=== PATIENT | male | born 1985 | race Caucasian/White ===

== ENCOUNTER 2019-02-14 18:09 | Emergency (ER) | payer OTHER ==
[~2019-02-14] VITALS: Ht 172.7 cm; Wt 71.0 kg
[2019-02-14 18:25] VITALS: Ht 172.7 cm; Wt 71.0 kg
[2019-02-14] MEDS ORDERED: IBUP-1542 PO (18:54)
--- NOTE | 2019-02-14 19:34 | ERD ---
ER Documentation Chief Complaint Chief Complaint c/o chest pain rad to ar, pt. left AMA from [facility] yesterday HPI Patient is a 33-year-old male with no medical problems who presents with chest pain. The [place] He had bilateral arm numbness and chest pain. He went to [facility] in [place] and was admitted. He then left AGAINST MEDICAL ADVICE today medardo use "a lot is going on in my life". He said that he is under a lot of stress and was recently discharged from [facility]. Upon review of old medical records this is the patient's first visit to the emergency department. He does not currently have a primary doctor. ROS All systems reviewed and are negative except as per history of present illness. Medications Home Meds Active Scripts Ibuprofen* (Motrin*) 600 Mg Tab, 600 MG PO Q6H PRN for PAIN AND OR ELEVATED TEMP, #30 TAB Prov:LUÍS STACY MD 02/14/19 Allergies Allergies: Uncoded Allergies: PENICILLIN (Allergy, Severe, 02/14/19) PMhx/Soc Medical and Surgical Hx: pt denies Medical Hx, pt denies Surgical Hx Hx Alcohol Use: Yes Hx Substance Use: Yes Hx Tobacco Use: Yes Smoking Status: Current some day smoker FmHx Family History: coronary disease Physical Exam Vitals Vital Signs Date Temp Pulse Resp B/P (MAP) Pulse Ox O2 O2 Flow FiO2 Time Delivery Rate 02/14/19 97.8 88 20 128/84 99 18:25 (99) Physical Exam Const: No acute distress Head: Atraumatic Eyes: Normal Conjunctiva ENT: Normal External Ears, Nose and Mouth. Neck: Full range of motion. No meningismus. Resp: Clear to auscultation bilaterally Cardio: Regular rate and rhythm, no murmurs Abd: Soft, non tender, non distended. Normal bowel sounds Skin: No petechiae or rashes Back: No midline or flank tenderness Ext: No cyanosis, or edema Neur: Awake and alert Psych: Anxious but no suicidal or homicidal ideation Procedures/MDM EKG read by me: Rate/Rhythm: Regular rate and rhythm at a rate of 97 Intervals: Normal Impression: No evidence of ischemia or arrhythmia Chest X-ray 1V Interpreted by me: Soft Tissue: No acute abnormalities Bones: No acute abnormalities Mediastinum/Cardiac Silhouette/Lungs: No acute abnormalities Smoking Cessation Therapy: Pt. was lectured for greater than 3 minutes on the health risks of continued smoking and the benefits of cessation. Patient is a 33-year-old male with no medical problems who presents with chest pain. His EKG and chest x-ray were negative. He is young and otherwise healthy and at this point I doubt acute coronary syndrome, pneumonia, pneumothorax, pulmonary embolism, or aortic dissection. I believe his symptoms may be related to the anxiety that he is dealing with currently. The patient can return for any worsening symptoms. The patient should follow-up with a primary doctor at the local clinics within 24 to 48 hours for reevaluation. Departure Diagnosis: Primary Impression: Chest pain Chest pain type: unspecified Qualified Codes: R07.9 - Chest pain, unspecified Condition: Fair Patient Instructions: Chest Pain, Uncertain Cause Referrals: [facility] YOU HAVE RECEIVED A MEDICAL SCREENING EXAM AND THE RESULTS INDICATE THAT YOU DO NOT HAVE A CONDITION THAT REQUIRES URGENT TREATMENT IN THE EMERGENCY DEPARTMENT. FURTHER EVALUATION AND TREATMENT OF YOUR CONDITION CAN WAIT UNTIL YOU ARE SEEN IN YOUR DOCTORS OFFICE WITHIN THE NEXT 1-2 DAYS. IT IS YOUR RESPONSIBILITY TO MAKE AN APPOINTMENT FOR FOLOW-UP CARE. IF YOU HAVE A PRIMARY DOCTOR --you should call your primary doctor and schedule an appointment IF YOU DO NOT HAVE A PRIMARY DOCTOR YOU CAN CALL OUR PHYSICIAN REFERRAL HOTLINE AT IF YOU CAN NOT AFFORD TO SEE A PHYSICIAN YOU CAN CHOSE FROM THE FOLLOWING [facility] [address] [facility]. [facility] [address] [facility] [address] [facility] [facility] [address] [facility] [facility] [address] [facility] [facility]. [address] [place] Additional Instructions: Call your primary care doctor TOMORROW for an appointment during the next 1-2 days.See the doctor sooner or return here if your condition worsens before your appointment time. LUÍS STACY MD February 14, 2019 19:34
[2019-02-14 21:06] VITALS: BP 120/60; PULSE 97; RESP 18
--- NOTE | 2019-02-15 14:26 | RADRPT ---
Vent Rate: 97 bpm RR Interval: 0 msec SC Interval: 116 msec QRS Duration: 96 msec QT Interval: 344 msec QTC Interval: 436 msec P-R-T [place]: 142 - 84 - 144 degrees Unusual P axis, possible ectopic atrial rhythm Minimal voltage criteria for LVH, may be normal variant Nonspecific T wave abnormality Abnormal ECG Electronically Signed By: [facility]
== END 2019-02-14 21:10 | disposition home or self-care (01) ==
LOC: E/R 18:09
DX: R07.9 Chest pain, unspecified (principal); F17.210 Nicotine dependence, cigarettes, uncomplicated
CPT/HCPCS: 71045; 93005; Z7502

== ENCOUNTER 2019-02-25 17:03 | Emergency (ER) | payer SELFPAY ==
[~2019-02-25] VITALS: Ht 170.2 cm; Wt 72.9 kg
[~2019-02-25 17:03] MED LIST: IBUP-1542 PO
[2019-02-25 17:20] VITALS: BP 146/79; PULSE 120; RESP 18; Ht 170.2 cm; Wt 72.9 kg
== END 2019-02-25 19:22 | disposition left against medical advice (07) ==
LOC: E/R 17:03
DX: Z53.21 Procedure and treatment not carried out due to patient leaving prior to being seen by health care provider (principal)
CPT/HCPCS: 93005